=== PATIENT | female | born 1965 | race Two or more races ===

== ENCOUNTER 2020-05-16 09:50 | Outpatient (CLI) | payer MEDICAID ==
[~2020-05-16] VITALS: Ht 152.4 cm; Wt 68.0 kg
[2020-05-16] MEDS ORDERED: ATORVASTATIN CA20 MG ORAL (13:13)
[2020-05-16] MEDS ORDERED: LOSARTAN-HCTZ1 EACH ORAL (13:13)
[2020-05-16] MEDS ORDERED: PROAIR HFA8.5 GM INH (13:13)
[2020-05-16] MEDS ORDERED: ASPIRIN EC81 MG ORAL (13:13)
[2020-05-16] MEDS ORDERED: AMLODIPINE BESY10 MG ORAL (13:13)
[2020-05-16] MEDS ORDERED: GLIPIZIDE5 MG ORAL (13:13)
[2020-05-16] MEDS ORDERED: METFORMIN HCL500 M1 ORAL (13:13)
--- NOTE | 2020-05-17 18:15 | Consultation ---
DATE OF CONSULTATION: 05/16/2020 GASTROENTEROLOGY CONSULTATION CONSULTING PHYSICIAN: Alonso Gallo MD. CHIEF COMPLAINT: Referral for screening colonoscopy. PAST MEDICAL HISTORY: 1. Diabetes. 2. Hypertension. 3. Asthma. 4. Bronchitis. PAST SURGICAL HISTORY: Cholecystectomy. MEDICATIONS: Please see medication reconciliation list. FAMILY HISTORY: No family history of GI malignancies. SOCIAL HISTORY: The patient denies any tobacco, alcohol, or drug abuse. ALLERGIES: No known drug allergies. REVIEW OF SYSTEMS: A 10-point review of systems was performed and was negative. PHYSICAL EXAMINATION: VITAL SIGNS: Temperature 97.5. Vital signs are stable. Height is 5 feet. Weight is 150. HEENT: Normocephalic and atraumatic. Sclerae are anicteric. NECK: Supple. No evidence of obvious lymphadenopathy. CARDIOVASCULAR: Regular rate and rhythm. Plus S1, S2. LUNGS: Clear to auscultation bilaterally. ABDOMEN: Positive bowel sounds. Soft and nontender. No rebound. No guarding. No peritoneal sign. EXTREMITIES: No cyanosis, clubbing, or edema. ASSESSMENT: This is a 54-year-old female who was referred for screening colonoscopy. The patient was given instruction for colonoscopy. Risks and benefits of procedure was explained to her. The prep was explained to her. We will schedule her as soon as authorization is obtained. Alonso Gallo M.D. DR: DI JOB#: [id number] CC:
== END 2020-05-16 11:50 | disposition home or self-care (01) ==
LOC: PAN 09:50
DX: E11.9 Type 2 diabetes mellitus without complications (principal); I10 Essential (primary) hypertension; Z90.49 Acquired absence of other specified parts of digestive tract
CPT/HCPCS: G0463